=== PATIENT | female | born 1990 | race Caucasian/White ===

== ENCOUNTER 2018-07-29 15:40 | Emergency (ER) | payer MEDICAID ==
[~2018-07-29] VITALS: Ht 165.1 cm; Wt 56.7 kg
[2018-07-29 15:40] VITALS: BP 127/77
[2018-07-29 17:37] LABS: BASOPHILS # (AUTO) 0.2 /CMM (0.0-0.2); BASOPHILS % (AUTO) 2.6 % (0.0-2.0); EOSINOPHILS % (AUTO) 0.4 % (0.0-6.0); HEMATOCRIT 40 % (33-45); HEMOGLOBIN 13.4 g/dL (11.5-14.8); LYMPHOCYTES # (AUTO) 1.9 /CMM (0.8-4.8); LYMPHOCYTES % (AUTO) 20.1 % (20.0-44.0); MEAN CORPUSCULAR HGB CONC 33 g/dl (31.0-36.0); MEAN CORPUSCULAR VOLUME 87 fL (82-100); MONOCYTES # (AUTO) 0.4 /CMM (0.1-1.30); MONOCYTES % (AUTO) 4.7 % (2.0-12.0); NEUTROPHILS # (AUTO) 6.8 /CMM (1.8-8.9); NEUTROPHILS % (AUTO) 72.2 % (43.0-81.0); PLATELET COUNT (AUTO) 214 /CMM (150-450); RED BLOOD CELL COUNT(AUTO) 4.64 MIL/uL (4.0-5.2); WHITE BLOOD COUNT (AUTO) 9.3 K/uL (4.3-11.0)
[2018-07-29 17:44] LABS: CALCIUM, SERUM 8.7 mg/dL (8.5-10.1); CREATININE 0.7 mg/dL (0.6-1.3)
[2018-07-29 17:50] LABS: ALBUMIN 3.7 g/dL (3.4-5.0); BILIRUBIN,TOTAL 0.2 mg/dL (0.2-1.0); TOTAL PROTEIN, SERUM 6.9 g/dL (6.4-8.2)
[2018-07-29 18:28] LABS: APPEARANCE,URINE Clear (CLEAR); BILIRUBIN,URINE Negative (NEGATIVE); BLOOD, URINE Negative Ery/uL (NEGATIVE); COLOR,URINE Yellow (YELLOW); KETONES,URINE Negative (NEGATIVE); LEUKOCYTE ESTERASE ,URINE Moderate (NEGATIVE); NITRITE, URINE Negative (NEGATIVE); PH,URINE 7.5 (5.0-8.0); PROTEIN,URINE Negative (NEGATIVE); UGLUCOSE Negative (NEGATIVE); UROBILINOGEN,URINE 0.2 EU/dL (0.2)
[2018-07-29 18:46] LABS: BACTERIA,URINE Few /HPF (None Seen)
[2018-07-29 18:47] LABS: SQUAMOUS EPITHELIAL CELL,UR Few /HPF (None Seen)
== END 2018-07-29 19:24 | disposition home or self-care (01) ==
LOC: ER 15:45
DX: N39.0 Urinary tract infection, site not specified (principal); N64.4 Mastodynia; M25.50 Pain in unspecified joint; R21 Rash and other nonspecific skin eruption; Z41.1 Encounter for cosmetic surgery
CPT/HCPCS: 36415; 71045; 80048; 80076; 81001; 84703; 85025; 85652; 86140; 87086; 99285; A4606; Z7610; 81000-TC

== ENCOUNTER 2020-12-25 22:30 | Emergency (ER) | payer MEDICAID ==
[~2020-12-25] VITALS: Ht 165.1 cm; Wt 49.9 kg
--- NOTE | 2020-12-25 22:39 | NUR ---
PT AAOX4. BIBSELF C/O R HAND PAIN S/P PUNCHING A WALL. AWAITING FOR ER MD TREVINO AND ORDERS.
[2020-12-25] MEDS ORDERED: LIDOCAINE 2%-EPI 1:100,000 30 ML VIAL ONE (22:51)
[2020-12-25] MEDS ORDERED: LIDOCAINE 2% 50 ML MDV IJ ONE (22:53)
--- NOTE | 2020-12-25 22:59 | NUR ---
ER AT BEDSIDE
[2020-12-25] MEDS ORDERED: KETOROLAC TROMETHAMINE INJ 60 MG/2 ML VIAL IM ONE ×2 (23:00→23:06)
--- NOTE | 2020-12-25 23:00 | NUR ---
PER ER MD VERBAL ORDER 2% LIDOCAINE WO
[2020-12-25] MEDS ORDERED: TRAM50TA2 PO (23:09)
--- NOTE | 2020-12-25 23:10 | NUR ---
ER AT BEDSIDE
--- NOTE | 2020-12-25 23:30 | NUR ---
EMT AT BEDSIDE FOR ULNAR GUTTER
--- NOTE | 2020-12-25 23:40 | NUR ---
Patient discharged to home in stable condition. Written and verbal after care instructions given. Patient verbalizes understanding of instruction and RX. Pt ambulated out of ED. Educated to follow up with ortho.
[2020-12-26] MEDS ORDERED: LIDOCAINE 2% 20 ML MDV TP ONE
[2020-12-26] MEDS ORDERED: LIDOCAINE 2%-EPI 1:100,000 30 ML VIAL TP ONE
[2020-12-26 00:02] VITALS: BP 124/72
== END 2020-12-25 23:50 | disposition home or self-care (01) ==
LOC: ER 22:32
DX: S62.396A Other fracture of fifth metacarpal bone, right hand, initial encounter for closed fracture (principal); Z79.899 Other long term (current) drug therapy; W22.8XXA Striking against or struck by other objects, initial encounter; Y93.89 Activity, other specified; Y92.89 Other specified places as the place of occurrence of the external cause; Y99.8 Other external cause status
CPT/HCPCS: 29125; 73130; 96372; 99283; J1885; J3490 ×2